=== PATIENT | male | born 1955 | race Caucasian/White ===

== ENCOUNTER 2018-11-12 14:12 | Emergency (ER) | payer MEDICARE, SELFPAY ==
[~2018-11-12] VITALS: Ht 175.3 cm; Wt 62.9 kg
[2018-11-12 14:13] VITALS: BP 128/86
== END 2018-11-12 15:49 | disposition home or self-care (01) ==
LOC: ED 15:45
DX: S80.11XA Contusion of right lower leg, initial encounter (principal); W01.0XXA Fall on same level from slipping, tripping and stumbling without subsequent striking against object, initial encounter; Y93.89 Activity, other specified; Y92.89 Other specified places as the place of occurrence of the external cause; Y99.8 Other external cause status
CPT/HCPCS: 99283

== ENCOUNTER 2019-09-14 22:19 | Emergency (ER) | payer MEDICARE ==
[~2019-09-14] VITALS: Ht 175.3 cm; Wt 67.0 kg
--- NOTE | 2019-09-14 22:28 | NUR ---
ATTACHED TO ALL MONITORS. CALL LIGHT WITHIN REACH
--- NOTE | 2019-09-14 22:28 | NUR ---
BIB [facility] WITH "SOB ALL DAY". 98% RA. +NASAL CONGESTION. AFEBRILE.
[2019-09-14] MEDS ORDERED: ALBUTEROL/IPRATROPIUM 2.5MG/0.5MG, 3 ML NPPB ONE (22:30)
[2019-09-14] MEDS ORDERED: ALBUTEROL SULFATE 2.5 MG/3 ML ONE (22:35)
[2019-09-14 23:10] LABS: BASOPHILS # (AUTO) 0.03 x10^3/uL (0-0.1); BASOPHILS % (AUTO) 0 % (0-1); EOSINOPHILS # (AUTO) 0.14 x10^3/uL (0-0.4); EOSINOPHILS % (AUTO) 2 % (1-7); LYMPHOCYTES # (AUTO) 1.35 x10^3/uL (1-3.4); LYMPHOCYTES % (AUTO) 19 % (22-44); MD NO; MEAN CORPUSCULAR HEMOGLOBIN 28.9 pg (27.5-34.5); MEAN CORPUSCULAR HGB CONC 32.3 g/dL (33.2-36.2); MEAN CORPUSCULAR VOLUME 89.6 fL (81-97); MEAN PLATELET VOLUME 8.9 fL (7.4-10.4); MONOCYTES # (AUTO) 0.38 x10^3/uL (0.2-0.8); MONOCYTES % (AUTO) 5 % (2-9); NEUTROPHILS # (AUTO) 5.33 x10^3/uL (1.8-6.8); NEUTROPHILS % (AUTO) 74 % (42-75); PLATELET COUNT 152 x10^3/uL (130-400); RED BLOOD COUNT 5.12 x10^6/uL (4.38-5.82); RED CELL DISTRIBUTION WIDTH 15.7 % (9.4-14.8)
[2019-09-14 23:23] LABS: ALBUMIN 3.9 g/dL (3.4-5.0); ANION GAP 6 mmol/L (5-15); CALCIUM 9.2 mg/dL (8.5-10.1); CHLORIDE 112 mmol/L (98-107); CREATININE 2.27 mg/dL (0.7-1.3)
--- NOTE | 2019-09-14 23:40 | NUR ---
PT FOR RECHECK BY ERP.
[2019-09-15] MEDS ORDERED: SODIUM CHLORIDE 0.9% 1,000ML IVBOLUS ONE
[2019-09-15 01:07] VITALS: BP 163/89
== END 2019-09-15 01:40 | disposition home or self-care (01) ==
LOC: ED 23:55
DX: R06.00 Dyspnea, unspecified (principal); N28.9 Disorder of kidney and ureter, unspecified; F17.200 Nicotine dependence, unspecified, uncomplicated
CPT/HCPCS: 36415; 71045; 80048; 82040; 85025; 93005; 94640; 99284; J7030; J7620